=== PATIENT | male | born 1985 | race American Indian/Alaskan Native ===

== ENCOUNTER 2016-12-30 19:14 | Emergency (ER) | payer SELFPAY ==
[2016-12-30 19:33] VITALS: RESP 18; TEMP 99; BMI 25.0
--- NOTE | 2016-12-30 19:41 | ED PDOC ---
Arrival/HPI - General Chief Complaint: Abnormal Skin Integrity Time Seen by Provider: 12/30/16 19:27 Historian: Patient - Critical Care Narrative Critical Care (Text): 12/30/16 19:46 This is a 31Y M with no PMH here for rash on R chest for the past day. He reports he started having R sided chest pain and the next day a rash appeared on his R chest that goes around to his R back. He describes it as painful pustules that hurt with heat and cold and to light touch. He denies fever, chills, n/v/d, numbness/tingling, dysuria or hematuria. He has had chicken pox as a child. - History of Present Illness Time/Duration: 24 hours Symptom Course: Worsening Quality: Aching, Stabbing, Burning Severity Level: 10 Activities at Onset: Rest Context: Home Past Medical History - Provider Review Nursing Documentation Reviewed: Yes - Past History Past History: No Previous - Past Medical History Past Medical History: No Previous - Cardiac Hx Cardiac Disorders: No - Pulmonary Hx Respiratory Disorders: No - Neurological Hx Neurological Disorder: No - HEENT Hx HEENT Disorder: No - Renal Hx Renal Disorder: No - Endocrine/Metabolic Hx Endocrine Disorders: No - Hematological/Oncological Hx Blood Disorders: Yes Other/Comment: Chicken Pox as a child - Integumentary Hx Dermatological Disorder: No - Musculoskeletal/Rheumatological Hx Musculoskeletal Disorders: No - Gastrointestinal Hx Gastrointestinal Disorders: No - Genitourinary/Gynecological Hx Genitourinary Disorders: No - Psychiatric Hx Psychophysiologic Disorder: No Hx Substance Use: No Family/Social History - Physician Review Nursing Documentation Reviewed: Yes Family/Social History: No Known Family HX Smoking Status: Light Smoker < 10 Cigarettes Daily Hx Alcohol Use: Yes Frequency of alcohol use: Socially Hx Substance Use: No Allergies/Home Meds Allergies/Adverse Reactions: Allergies No Known Allergies Allergy (Verified 12/30/16 19:21) Home Medications: Home Meds Medication Instructions Recorded Confirmed Multivitamin [Men's Multi-Vitamin] 1 each PO DAILY 12/30/16 12/30/16 Review of Systems - Physician Review All systems were reviewed & negative as marked: Yes - Review of Systems Constitutional: Normal. absent: Fatigue, Weight Change, Fevers Eyes: Normal. absent: Vision Changes ENT: Normal Respiratory: Normal Cardiovascular: Chest Pain (R sided). absent: Palpitations Gastrointestinal: Normal Genitourinary Male: Normal Musculoskeletal: Back Pain Skin: Rash, Skin Lesions Neurological: Normal Endocrine: Normal Hemo/Lymphatic: Normal Psychiatric: Normal Physical Exam Vital Signs Reviewed: Yes Vital Signs Temp Pulse Resp BP Pulse Ox 12/30/16 19:21 99.0 F 88 18 141/89 96 Temperature: Afebrile Blood Pressure: Normal Pulse: Regular Respiratory Rate: Normal Appearance: Positive for: Well-Appearing, Non-Toxic, Comfortable Pain Distress: None Mental Status: Positive for: Alert and Oriented X 3 - Systems Exam Head: Present: Atraumatic, Normocephalic Pupils: Present: PERRL Extroacular Muscles: Present: EOMI Mouth: Present: Moist Mucous Membranes Neck: Present: Normal Range of Motion Respiratory/Chest: Present: Clear to Auscultation, Good Air Exchange. No: Respiratory Distress, Accessory Muscle Use Cardiovascular: Present: Regular Rate and Rhythm, Normal S1, S2. No: Murmurs Abdomen: Present: Normal Bowel Sounds. No: Tenderness, Distention Upper Extremity: Present: Tenderness, Other (rash on R underarm, pustules ) Lower Extremity: Present: Normal Inspection. No: Edema Neurological: Present: GCS=15, CN II-XII Intact Skin: Present: Rashes Psychiatric: Present: Alert, Oriented x 3 Medical Decision Making ED Course and Treatment: 12/30/16 19:25 Impression: This is a 31Y M with no PMH here for rash for 1 day. He reports he was having pain in the R side of his chest when a rash errupted the next day. He had chicken pox as a child. The rash follows a dermatome distribution. DDX: Shingles, chemical rash Plan: -- EKG -- Decadron IM -- Valtrex -- Reassess and disposition Re-evaluation Time: 19:48 Reassessment Condition: Unchanged - EKG Interpretation EKG Interpretation (Text): 12/30/16 20:24 HR 81. Normal sinus rhythm. Regular intervals. Interpreted by ED Physician: Yes Type: 12 lead EKG - Medication Orders Current Medication Orders: Discontinued Medications Dexamethasone (Decadron Inj) 10 mg IM STAT STA Stop: 12/30/16 19:38 Last Admin: 12/30/16 20:13 Dose: 10 mg Valacyclovir HCl (Valtrex) 1 gm PO STAT STA PRN Reason: Protocol Stop: 12/30/16 19:54 Last Admin: 12/30/16 20:13 Dose: 1 gm Disposition/Present on Arrival - Present on Arrival Any Indicators Present on Arrival: No History of DVT/PE: No History of Uncontrolled Diabetes: No Urinary Catheter: No History of Decub. Ulcer: No History Surgical Site Infection Following: None - Disposition Have Diagnosis and Disposition been Completed?: Yes Diagnosis: Shingles rash Disposition: HOME/ ROUTINE Disposition Time: 19:30 Patient Plan: Discharge Patient Problems: Current Active Problems Problem Status Onset Shingles rash Acute Condition: GOOD Discharge Instructions (ExitCare): Shingles (ED) Print Language: FRISIAN Additional Instructions: Mr. Magdaleno, thank you for letting us take care of you today. Your provider was Dr. Sawyer. You were treated for shingles. The emergency medical care you received today was directed at your acute symptoms. If you were prescribed any medication, please fill it and take as directed. It may take several days for your symptoms to resolve. Return to the Emergency Department if your symptoms worsen, do not improve, or if you have any other problems. Please contact your doctor or call one of the physicians/clinics you have been referred to that are listed on the Patient Visit Information form that is included in your discharge packet. Bring any paperwork you were given at discharge with you along with any medications you are taking to your follow up visit. Our treatment cannot replace ongoing medical care by a primary care provider (PCP) outside of the emergency department. Thank you for allowing the [facility] team to be part of your care today. Prescriptions: Prednisone [Deltasone] 20 mg PO DAILY #15 tablet Valacyclovir HCl [Valtrex] 1,000 mg PO Q8H #21 tablet Referrals: PCP,NO [Primary Care Provider] - Follow up with primary Forms: WORK NOTE
[2016-12-30 20:25] VITALS: BP 156/82; PULSE 87; O2SAT 100
--- NOTE | 2016-12-31 22:54 | CARD ---
APPROVED REPORT EKG Measurement Heart [id number] HI 128P [id number] <Conclusion> Arm lead reversal and missing V3 Normal sinus rhythm with sinus arrhythmia Inferior infarct, age undetermined Abnormal ECG
== END 2016-12-30 20:24 | disposition home or self-care (01) ==
LOC: ED 19:14
DX: B02.9 Zoster without complications (principal)
CPT/HCPCS: 93005; 96372; 99283; J1100